=== PATIENT | female | born 1940 | race Caucasian/White ===

== ENCOUNTER → 2017-10-26 | Outpatient (CLI) | payer OTHER ==
[~2017-10-26] MED LIST: ACET-1256 PO; ADVIN25/60 INH; CLR10 PO; DILT120C68 PO; GLIP5TAB11 PO; MONT1TAB3 PO; OXYC-57 PO; PRT/20 PO; VNTHFA/IN INH
--- NOTE | 2017-10-26 14:14 | DIAGNOSTIC IMAGING REPORT ---
SINUSES WITH BRAIN LAB HISTORY: 77 years-old Female CHRONIC SINUSITIS chronic sinus disease with prior sinus surgery COMPARISON: CT sinus 12/25/2012 TECHNIQUE: Multiple axial CT images of the paranasal sinuses were obtained without the use of IV contrast. A dose lowering technique was used consistent with the principals of ZACARIAS. FINDINGS: Mild brain atrophy. No acute intracranial abnormality identified. Cerebral vascular calcifications are noted. Orbits and soft tissues are unremarkable. No calvarial or facial bone fracture identified. Mastoid air cells and middle ear cavities are clear. Severe mucoperiosteal thickening with dense mucosal secretions noted within the bilateral maxillary sinuses. Severe near complete opacification of the frontal sinuses with only a small focus of aeration noted within the inferior left frontal sinus on image 239 series 3.] Mucosal debris is also noted within the frontal sinuses. Severe mucoperiosteal thickening of the ethmoid air cells with severe near complete opacification of the sphenoid sinuses, also containing dense mucosal debris. There is mildly improved aeration of the sinuses from comparison study 12/25/2012. Multifocal areas of polypoid mucosal thickening are seen about the nasal turbinates with largest focus of polypoid mucosal thickening involving the posterior left nasal turbinate, 1.1 x 0.8 cm on image 119 series 3. Mild mucosal thickening about the nasopharynx. Postoperative changes suggest prior bilateral maxillary antrostomy. Bony remodeling/erosive or postsurgical changes involving ethmoid air cells redemonstrated. Mild rightward bowing and spurring of the nasal septum. The middle nasal turbinates appear to be absent. No Chris cell. Opacification of the frontoethmoidal and sphenoethmoidal recesses. IMPRESSION: 1. Severe paranasal sinus disease as detailed above, slightly improved from comparison study 12/25/2012. Dense debris is noted within the paranasal sinuses as above suggesting inspissated mucosal debris. 2. Rightward bowing and spurring of the nasal septum. 3. Multiple areas of polypoid mucosal thickening about the nasal turbinates. The above report was generated using voice recognition software. It may contain grammatical, syntax or spelling errors. Electronically signed by: Drew Chong M.D. 10/26/2017 2:12 PM Dictated Date/Time: 10/26/2017 2:03 PM
== END | disposition home or self-care (01) ==
LOC: C.CTS 13:42
PROVIDERS: ATTEND Otolaryngology
DX: J32.9 Chronic sinusitis, unspecified (principal)

== ENCOUNTER → 2017-11-04 | Day surgery (SDC) | payer BC, OTHER ==
[2017-10-25 08:19] VITALS: BMI 27.0
--- NOTE | 2017-10-26 09:08 | PAT Medication Instructions ---
Service Date Oct 26, 2017. Current Home Medication List Acetaminophen (Tylenol), 500 MG PO PRN Albuterol Hfa (Ventolin Hfa), 2 PUFFS INH Q6H PRN for PRN Diltiazem Hcl Ext Rel (Tiazac), 120 MG PO QAM Fluticasone Prop/Salmeterol (Advair Diskus 250/50 60 Dose), 1 PUFF INH BID Glipizide (Glucotrol), 2.5 MG PO NOON Loratadine (Claritin), 10 MG PO PRN Montelukast Sodium (Singulair), 10 MG PO HS Pantoprazole (Protonix), 20 MG PO QPM Medication Instructions For Your Scheduled Surgery - Hold the following medications the morning of surgery: Loratadine (Claritin), 10 MG PO PRN Glipizide (Glucotrol), 2.5 MG PO NOON - Take the following medications the morning of surgery with a sip of water: Acetaminophen (Tylenol), 500 MG PO PRN (okay to take up to 4 hours prior to surgery if needed) Albuterol Hfa (Ventolin Hfa), 2 PUFFS INH Q6H PRN for PRN (if needed) Diltiazem Hcl Ext Rel (Tiazac), 120 MG PO QAM Fluticasone Prop/Salmeterol (Advair Diskus 250/50 60 Dose), 1 PUFF INH BID - Take the following medications as scheduled the night before surgery: Montelukast Sodium (Singulair), 10 MG PO HS Pantoprazole (Protonix), 20 MG PO QPM Loratadine (Claritin), 10 MG PO PRN (if needed) Fluticasone Prop/Salmeterol (Advair Diskus 250/50 60 Dose), 1 PUFF INH BID Acetaminophen (Tylenol), 500 MG PO PRN (if needed) Albuterol Hfa (Ventolin Hfa), 2 PUFFS INH Q6H PRN for PRN (if needed) If you have any questions please call us at [phone] or [phone] or [phone]
[2017-10-26 14:46] VITALS: BMI 27.0
[2017-10-26 15:42] LABS: HEMOGLOBIN 14.5 g/dL (12.0-16.0); MEAN CELL VOLUME 90.4 fL (80-100); MEAN CORPUSCULAR HEMOGLOBIN 29.1 pg (25-34); MEAN CORPUSCULAR HGB CONC 32.2 g/dl (32-36); MEAN PLATELET VOLUME 9.8 fL (7.4-10.4); PLATELET COUNT 215 K/uL (130-400); RED CELL DISTRIBUTION WIDTH CV 14.1 % (11.5-14.5); RED CELL DISTRIBUTION WIDTH SD 46.3 fL (36.4-46.3); WHITE BLOOD COUNT 10.59 K/uL (4.8-10.8)
[2017-10-26 15:51] LABS: CALCIUM 8.3 mg/dl (8.5-10.1); CREATININE 0.99 mg/dl (0.60-1.20); POTASSIUM 4.5 mmol/L (3.5-5.1)
[2017-10-27 06:09] LABS: HEMOGLOBIN A1C 6.5 % (4.5-5.6)
--- NOTE | 2017-11-03 14:30 | History and Physical ---
History & Physical Date Nov 03, 2017. Chief Complaint polyps History of Present Illness The patient is a 77 year old female with complaints of recurrent nasal polyposis , surgery in [place] x 4, then by mo 2012 Additional History Hepatic Disease: No Endocrine Disorder: Yes Kidney Disease: No Hypertension: Yes Heart Disease: No Bleeding Tendencies: No Infectious Diseases: No Allergies Coded Allergies: Beta Adrenergic Blockers (Verified Allergy, Unknown, CONFUSION, 10/25/17) Cat Dander (Verified Allergy, Unknown, CONGESTION, 10/25/17) Grass (Verified Allergy, Unknown, CONGESTION, 10/25/17) Green [place] (Verified Allergy, Unknown, CONGESTION, 10/25/17) Ibuprofen (Verified Allergy, Unknown, ASTHMA ATTACK, 10/25/17) Rice (Verified Allergy, Unknown, CONGESTION, 10/25/17) Sulfamethoxazole w/Trimethoprim (Verified Allergy, Unknown, RASH, 10/25/17) Tomato (Verified Allergy, Unknown, CONGESTION, 10/25/17) Home Medications Scheduled Acetaminophen (Tylenol), 500 MG PO PRN Diltiazem Hcl Ext Rel (Tiazac), 120 MG PO QAM Fluticasone Prop/Salmeterol (Advair Diskus 250/50 60 Dose), 1 PUFF INH BID Glipizide (Glucotrol), 2.5 MG PO NOON Loratadine (Claritin), 10 MG PO PRN Montelukast Sodium (Singulair), 10 MG PO HS Pantoprazole (Protonix), 20 MG PO QPM Scheduled PRN Albuterol Hfa (Ventolin Hfa), 2 PUFFS INH Q6H PRN for PRN Physical Examination Skin: warm/dry, no rash Eyes: normal inspection, EOMI, sclerae normal ENT: normal ENT inspection, pharynx normal, + pertinent finding (polyposis) Head: normocephalic, atraumatic Neck: supple, no adenopathy, trachea midline Respiratory/Chest: lungs clear, normal breath sounds, no respiratory distress Cardiovascular: regular rate, rhythm, no edema, no murmur Abdomen / GI: normal bowel sounds, non tender Back: normal inspection Extremities: normal inspection, normal range of motion Neurologic/Psych: no motor/sensory deficits, alert, normal reflexes, oriented x 3 Diagnosis chronic sinusitis/polyposis Plan of Treatment endoscopic sinus surgery
[~2017-11-04] VITALS: Ht 142.2 cm; Wt 55.9 kg
[~2017-11-04] MED LIST changes: +ACETAMINOPHEN 1000 MG/100 ML IV IV ONE; +ATROPINE SULFATE 0.1 MG/ML 5ML SYR IV PRN; +CEFAZOLIN 1000MG IV PUSH 7.5 ML IV SCH; +DEXAMETHASONE SOD INJ 4 MG/ML VIAL ONE; +EpHEDrine SULFATE INJ 50 MG/ML AMP IV PRN; +EpINEphrine INJ 1MG/ML AMP 1 MG/ML AMP ONE; +FENTANYL CITRATE INJ 50 MCG/1 ML 2 ML VIAL ONE; +GELATIN SPONGE 12-7MM ONE; +IPRATROPIUM BROMIDE NEB SOLN 0.02% 2.5 ML VIAL INH PRN; +LACTATED RINGER'S 1000ML 1,000 ML IV SCH; +LIDO 2%/EPINEPHRINE 1:100000 20 ML VIAL ONE; +LIDOCAINE 4% INH SOLN 4 ML BTL ONE; +LIDOCAINE HCL 2% 2 ML VIAL (20MG/ML) ONE; +MIDAZOLAM HCL 1 MG/ML 2ML VIAL ONE; +ONDANSETRON INJ 2 MG/ML 2 ML VIAL IV PRN; +ONDANSETRON INJ 2 MG/ML 2 ML VIAL ONE; +OXYCODONE/ACETAMINOPHEN 5-325 TAB PO PRN; +PHENYLEPHRINE 100MCG/ML 5ML SYR ONE; +PROPOFOL IV EMULSION 10 MG/ML 20 ML VIAL ONE; +SODIUM CHLORIDE 0.9% 1000ML 1,000 ML IV SCH
[2017-11-04 07:27] VITALS: BP 173/87; PULSE 88; TEMP 36.6; O2SAT 95; Ht 142.2 cm; Wt 55.9 kg
--- NOTE | 2017-11-04 10:22 | History & Physical Bridge Note ---
H&P Re-Evaluation Bridge Note: I have examined the patient, reviewed the History & Physical and in the interval since the performance of the History & Physical I have noted the following changes of clinical significance: No changes noted
[2017-11-04] MEDS: BACITRACIN OINT 15 GM TUBE ONE ×2 (11:30→11:59)
--- NOTE | 2017-11-04 12:02 | [facility] Post Operative Brief Note ---
Immediate Operative Summary Operative Date Nov 04, 2017. Pre-Operative Diagnosis Chronic Sinusitis, Polyposis Post-Operative Diagnosis Chronic Sinusitis, Polyposis Procedure(s) Performed Endoscopic Sinus Surgery, Bilateral Frontal, Maxillary, Sphenoid, and Total Ephmoid Surgeon Dr. Mckeon Technical Agronomist Surgeon(s) none Estimated Blood Loss 100 ml. Findings Consistent with Post-Op Diagnosis Specimens Drains None Anesthesia Type General Complication(s) none Disposition Accompanied Pt To Recover: yes Disposition: Recovery Room / PACU Overlapping Procedure I was present for: the critical portions of procedure. I was immediately available: during the entire case
[2017-11-04 12:24] VITALS: PULSE 82; O2SAT 100
[2017-11-04] MEDS: FENTANYL CITRATE INJ 50 MCG/1 ML 2 ML VIAL IV PRN ×2 (12:24→12:32)
--- NOTE | 2017-11-04 12:35 | Discharge Instructions-SurgCtr ---
Discharge Instructions Date of Service Nov 04, 2017. Visit Reason for Visit: Chronic Sinusitis, Polyps Discharge Discharge Diagnosis / Problem: same Discharge Goals Goal(s): Improve function, Improve disease control, Therapeutic intervention Activity Recommendations Activity Limitations: per Instructions/Follow-up section Anesthesia . Post Anesthesia Instructions: If you have had General Anesthesia or IV Sedation: * Do not drive today. * Resume driving when surgeon permits. * Do not make important decisions or sign legal documents today. * Call surgeon for: 1. Temperature elevations greater than 101 degrees F. 2. Uncontrollable pain. 3. Excessive bleeding. 4. Persistent nausea and vomiting. 5. Medication intolerance (nausea, vomiting or rash). * For nausea and vomiting use only clear liquids such as: tea, soda, bouillon until nausea subsides, then gradually increase diet as tolerated. * If you have any concerns or questions, call your surgeon's office. If physician is unavailable and it is an emergency, call 911 or go to the nearest emergency room. . Instructions / Follow-Up Instructions / Follow-Up ACTIVITY RECOMMENDATIONS: * Being up and around is good, but no strenuous activity, heavy lifting or physical exertion for one week. * Keep your head elevated 30 degrees when lying down or sleeping. * Do not blow your nose for 48 hours, sniff back instead. * Avoid hot showers. OVER THE COUNTER MEDICATIONS: * You may use Tylenol * Avoid aspirin or aspirin containing products, e.g. as they may increase bleeding. SPECIAL CARE INSTRUCTIONS: * Expect to have bloody drainage from your nose and/or down your throat for one to three days. Change drip pad as needed. * Begin irrigating your nose with saline solution today, at least six to ten times per day and sniff back to help remove old clots or crust. * You may experience nasal and facial congestion, pain and pressure, this is normal. * Please call with any significant and/or progressive pain, redness, swelling around the eyes, visual changes, fever of 101.5 degrees F, active bleeding or any problems or concerns. * If active bleeding occurs, spray the nose three times at one minute intervals with Afrin spray and call or cell phone: . If unable to reach the doctor, go to the nearest Emergency Department. Special Diet: * Avoid extremely hot fluids. FOLLOW UP VISIT: Follow-up Visit with Dr. Mckeon If not already scheduled, please call to schedule. Diet Recommendations Home Diet: resume previous diet Procedures Procedures Performed: Endoscopic Sinus Surgery, Bilateral Frontal, Maxillary, Sphenoid, and Total Ephmoid Pending Studies Studies pending at discharge: no Medical Emergencies . Who to Call and When: Medical Emergencies: If at any time you feel your situation is an emergency, please call 911 immediately. . Non-Emergent Contact Non-Emergency issues call your: Primary Care Provider . . "Provider Documentation" section prepared by Hiral Mckeon. . [place] Drug Monitoring Program Search Results: no issues identified
[2017-11-04 13:13] VITALS: BP 134/65; PULSE 83; TEMP 36.9; O2SAT 95
--- NOTE | 2017-11-04 13:20 | Anesthesiology Progress Note ---
Anesthesia Post Op Note Date & Time Nov 04, 2017 at 13:20 Vital Signs Pain Intensity: 4 Vital Signs Past 12 Hours Date Time Temp Pulse Resp B/P (MAP) Pulse Ox O2 Delivery O2 Flow Rate FiO2 11/04/17 13:00 133/72 11/04/17 12:58 87 15 93 11/04/17 12:58 87 15 11/04/17 12:57 36.3 94 Room Air 11/04/17 12:55 140/73 11/04/17 12:53 82 15 11/04/17 12:53 82 15 98 11/04/17 12:52 84 15 11/04/17 12:52 84 15 97 11/04/17 12:50 148/77 11/04/17 12:47 86 16 92 11/04/17 12:47 86 16 11/04/17 12:45 145/74 11/04/17 12:42 80 19 11/04/17 12:42 79 19 99 11/04/17 12:41 73 14 95 11/04/17 12:41 74 14 11/04/17 12:40 14 134/70 11/04/17 12:36 72 14 140/76 98 11/04/17 12:36 71 14 11/04/17 12:31 80 18 11/04/17 12:31 80 18 97 11/04/17 12:30 150/78 11/04/17 12:28 77 18 100 11/04/17 12:28 78 18 11/04/17 12:26 138/75 11/04/17 12:24 82 14 100 Mask 10.0 11/04/17 12:23 85 20 100 11/04/17 12:23 86 20 11/04/17 12:22 83 22 100 11/04/17 12:22 83 22 11/04/17 12:20 145/79 11/04/17 12:17 89 17 11/04/17 12:17 87 17 151/77 100 11/04/17 12:12 94 21 11/04/17 12:12 91 21 100 11/04/17 12:10 156/81 11/04/17 12:08 156/86 11/04/17 12:07 36.2 92 16 156/86 98 Oxymask 10 11/04/17 07:27 36.6 88 20 173/87 (115) 95 Room Air Notes Mental Status: alert / awake / arousable, participated in evaluation Pt Amnestic to Procedure: Yes Nausea / Vomiting: adequately controlled Pain: adequately controlled Airway Patency, RR, SpO2: stable & adequate BP & HR: stable & adequate Hydration State: stable & adequate Anesthetic Complications: no major complications apparent
--- NOTE | 2017-11-04 13:22 | OPERATIVE REPORT ---
DATE OF OPERATION: 11/04/2017 PREOPERATIVE DIAGNOSES: Chronic sinusitis and nasal polyposis. POSTOPERATIVE DIAGNOSES: Chronic sinusitis and nasal polyposis. PROCEDURE: Right and left frontal, right and left sphenoid, right and left total ethmoid and right and left maxillary sinus antrostomy. SURGEON: Dr. Mckeon. ANESTHESIA: General LMA. COMPLICATIONS: None. BLOOD LOSS: 100 mL. HISTORY OF PRESENT ILLNESS: A 77-year-old lady who had 4 previous sinus surgeries in [place] for polyps. Has bilateral middle and inferior turbinate resections, has a pansinusitis on CT [place]. DESCRIPTION OF PROCEDURE: The patient was brought to the operating room and placed in supine position. General anesthesia was induced using LMA, prepped with Betadine paint, draped in usual sterile manner. The nose was decongested using cottonoids with a topical solution of 4 mL of 4% Xylocaine mixed with 1 mL of epinephrine. Injection 2% Xylocaine 1:100,000 strength epinephrine was also used. The Solar Titan device calibrated and used for the entire procedure. The left nasofrontal duct was cannulated with guidewire with Solar Titan computer guidance and dilated using the 6 mm balloon. The guidewire was left in place as a marker for frontal sinusotomy because the nasal cavity was completely filled with polyps. The catheter was withdrawn leaving the guidewire in place and frontal sinusotomy was performed using the shaver coupled with the Solar Titan device to remove all the polyps anterior to the guidewire up to the nasofrontal duct. At this point, the total ethmoidectomy was performed in that the whole nasal cavity was filled with polyps. Multiple polyps were resected using the shaver along the inferior border of the resected middle turbinate and along the lateral wall and also polyps projecting from the septum into the superior meatus. In this manner, the entire ethmoid cavity was opened and then attention was turned to the sphenoid. The sphenoid opening was located using the image guidance system by [employer] and the opening which was opened previously was filled with polyps and was opened by using the shaver to remove the polyps and open up the sphenoid and then suctioning the sphenoid cavity of thick mucin. At this point, the maxillary sinus was found to have adhesions blocking the meatus which was opened using the seeker and the shaver and then suctioned clean the left maxillary sinus. At this point, the frontal sinus balloon was reinserted and the guidewire was removed and the frontal sinus was irrigated out of thick mucin using 120 mL of saline via the catheter. Attention was turned to the right side where frontal sinusotomy, sphenoidotomy, total ethmoidectomy and maxillary sinus antrostomy was performed in similar manner. The right frontal sinus was hypoplastic and dominated by the left frontal sinus. The maxillary sinus also had to be opened by removing adhesions and polyps, as was the right sphenoid. The contour stent was placed in the left nasofrontal duct and Propel stents were placed in the middle meatus, one on each side. The patient tolerated the procedure well and was taken to recovery area in satisfactory condition. I attest to the content of the Intraoperative Record and any orders documented therein. Any exception s are noted below.
[2017-11-04 13:43] VITALS: BP 145/69; PULSE 84; TEMP 36.9; O2SAT 95
== END | disposition home or self-care (01) ==
LOC: C.ACU 10-26 13:46
PROVIDERS: ATTEND Otolaryngology
DX: J32.9 Chronic sinusitis, unspecified (principal); J33.9 Nasal polyp, unspecified; J45.909 Unspecified asthma, uncomplicated; I10 Essential (primary) hypertension; Z79.899 Other long term (current) drug therapy; Z85.828 Personal history of other malignant neoplasm of skin; E11.9 Type 2 diabetes mellitus without complications; Z79.4 Long term (current) use of insulin; Z88.2 Allergy status to sulfonamides; Z88.8 Allergy status to other drugs, medicaments and biological substances